=== PATIENT | female | born 1985 | race Asian ===

== ENCOUNTER 2016-04-07 15:25 | Outpatient (CLI) | payer SELFPAY ==
[~2016-04-07] VITALS: Ht 162.6 cm; Wt 52.0 kg
[2016-04-07 15:54] LABS: URINE APPEARANCE CLEAR (CLEAR); URINE BILIRUBIN NEG (NEG); URINE COLOR YELLOW; URINE NITRITE NEG (NEG); URINE SPECIFIC GRAVITY 1.005 (1.000-1.030); UROBILINOGEN NEG (NEG); ZZUR CULT IF INDIC CLEAN CATCH NO
[2016-04-07 16:01] LABS: HEMATOCRIT 36.9 % (37-47); MEAN CELL VOLUME 77.5 fL (80-100); MEAN CORPUSCULAR HEMOGLOBIN 26.1 pg (25-34); MEAN CORPUSCULAR HGB CONC 33.6 g/dl (32-36); MEAN PLATELET VOLUME 9.9 fL (7.4-10.4); PLATELET COUNT 222 K/uL (130-400); RED BLOOD COUNT 4.76 M/uL (4.2-5.4); WHITE BLOOD COUNT 8.19 K/uL (4.8-10.8)
[2016-04-07 16:02] LABS: MANUAL MICROSCOPIC REQUIRED? NO; REVIEW REQ? NO
--- NOTE | 2016-04-07 16:02 | Medical Student: [facility] ---
Med Student History & Physical Date of Service Apr 07, 2016. Chief Complaint Bleeding History of Present Illness Source: patient, partner, other (carbon accountant ) Patient is a 31 year old, , 20 - 22 weeks GA, IRA 08/27/16 who presented today with vaginal bleeding. Patient and are from [place] and do not speak Chinese. All information was obtained via an carbon accountant. Patient does have medical records, but they are in [place]. Bleeding started at 0900 this morning. There have been about 3-4 instances of red tinged toilet paper today. Her course is also significant for some brown vaginal discharge at 13 weeks GA. She is also experiencing some pressure/ pain in her lower abdomen. She can still feel movement and has had no other fluid leaks. There is no recent trauma including a blow or a fall. The patient has not had intercourse in the last 72 hours. Patient's PMH is significant for anemia that was treated with supplements. The patient does not know her blood type. OB History No obstetrical history [employer] MARKETING History No history of abnormal pap smears, vaginal or cervical infections, or sexually transmitted diseases Past Medical History Past medical history is significant for anemia Social History Housing status: lives with significant other Occupational Status: unemployed Review of Systems Constitutional: No chills, No fever Respiratory: No cough, No shortness of breath Cardiovascular: No chest pain, No palpitations Abdomen: + pain, No nausea, No vomiting Denies RAPP and dizziness Physical Exam Vital Signs: BP: 106/70, HR: 84, Temp: 36, RR 15, Pulse Ox 100% General Appearance: WD/WN, no apparent distress Respiratory/Chest: lungs clear, normal breath sounds Cardiovascular: regular rate, rhythm, no edema, no gallop, no murmur Abdomen / GI: normal bowel sounds, non tender, soft, + pertinent finding ( gravid ) Extremities: no pedal edema Skin: normal color, warm/dry Monitoring External Monitor: Heart Tracing: HR 146 Assessment and Plan Patient is a 31 year old, , 20-22 weeks GA, 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 -obtain US to determine gestational age and placental location -get CBC to determine H & H
--- NOTE | 2016-04-07 16:30 | DIAGNOSTIC IMAGING REPORT ---
LIMITED (US) CLINICAL HISTORY: Vaginal bleeding. . COMPARISON STUDY: No previous studies for comparison. TECHNIQUE: Transabdominal sonography of the pelvis was performed. FINDINGS: A single intrauterine gestation is noted. heart rate is normal at 140 bpm. The cervix was closed, measuring 3.6 cm in length. Presentation on this exam was variable but predominantly cephalic. The placenta was located within the fundus as well as anteriorly and posteriorly. There is no evidence for placenta previa. No evidence for placental abruption was noted. Please note that a dedicated anatomical survey was not performed. The head circumference measures 17.27 cm which corresponds to an estimated gestational age of 19 weeks and 6 days. Abdominal circumference measured 15.74 cm which corresponds to an estimated gestational age of 20 weeks and 6 days. The biparietal diameter measured 4.58 cm which corresponds to an estimated gestational age of 19 weeks and 6 days. Femur length measured 3.15 cm which corresponds to an estimated gestational age of 19 weeks and 6 days. Estimated gestational age on this exam is 19 weeks and 6 days. IMPRESSION: 1. Single viable intrauterine gestation with normal heart rate of 140 bpm. 2. Estimated gestational age of 19 weeks and 6 days on this exam. 3. No placental abnormality. 4. Closed cervix, measuring 3.6 cm. Electronically signed by: Carlos Montejo M.D. 04/07/2016 4:28 PM Dictated Date/Time: 04/07/2016 4:25 PM
[2016-04-07 17:37] VITALS: Ht 162.6 cm; Wt 52.0 kg
== END 2016-04-07 18:40 | disposition home or self-care (01) ==
LOC: C.OPB 15:25 → C.LD 15:25 → C.OPB 18:40
PROVIDERS: ATTEND Obstetrics & Gynecology
DX: O46.92 Antepartum hemorrhage, unspecified, second trimester (principal); Z3A.19 19 weeks gestation of pregnancy

== ENCOUNTER → 2016-06-01 | Outpatient (CLI) | payer BC ==
[~2016-06-01] MED LIST: PRENTAB26 PO; VIREAD
== END | disposition home or self-care (01) ==
LOC: C.PAPS 10:50
PROVIDERS: ATTEND Obstetrics & Gynecology
DX: Z01.419 Encounter for gynecological examination (general) (routine) without abnormal findings (principal); Z34.02 Encounter for supervision of normal first pregnancy, second trimester

== ENCOUNTER → 2016-06-01 | Outpatient (CLI) | payer BC ==
[2016-06-01 12:30] LABS: URINE APPEARANCE CLEAR (CLEAR); URINE BILIRUBIN NEG (NEG); URINE COLOR YELLOW; URINE NITRITE NEG (NEG); URINE SPECIFIC GRAVITY 1.022 (1.000-1.030); UROBILINOGEN NEG (NEG)
[2016-06-01 12:34] LABS: ALKALINE PHOSPHATASE 88 U/L (45-117); ALT/SGPT 24 U/L (12-78); AST/SGOT 18 U/L (15-37)
[2016-06-01 12:36] LABS: MANUAL MICROSCOPIC REQUIRED? NO; REVIEW REQ? NO
[2016-06-01 14:11] LABS: GTGD 50 Grams
[2016-06-03 01:44] LABS: CHLAMYDIA TRACH RNA*** NOT DETECTED (NOT DETECTED); GC (NEIS GONORRHOEAE)RNA** NOT DETECTED (NOT DETECTED)
[2016-06-03 15:27] LABS: HEP B QUANT LOG IU/ML 8.08 Log IU/mL (<1.30); HEPATITIS BE ANTIGEN TC 555 Reactive; HEPATITIS C VIRAL RNA BY PCR <15 NOT DETECTED IU/ML (<15); HEPATITIS C VIRAL RNA(LOG) PCR <1.18 NOT DETECTED LOG IU/ML (<1.18)
== END | disposition home or self-care (01) ==
LOC: C.LAB1850 09:52
PROVIDERS: ATTEND Obstetrics & Gynecology
DX: Z34.02 Encounter for supervision of normal first pregnancy, second trimester (principal)

== ENCOUNTER → 2016-06-23 | Outpatient (CLI) | payer BC ==
[2016-06-23 10:46] LABS: ALT/SGPT 27 U/L (12-78); AST/SGOT 19 U/L (15-37); BLOOD UREA NITROGEN 6 mg/dl (7-18); BUN/CREATININE RATIO 11.9 (10-20); CALCIUM 8.5 mg/dl (8.5-10.1); CARBON DIOXIDE 27 mmol/L (21-32); CHLORIDE 105 mmol/L (98-107); CREATININE 0.48 mg/dl (0.60-1.20); GLUCOSE 77 mg/dl (70-99); POTASSIUM 3.5 mmol/L (3.5-5.1); SODIUM 139 mmol/L (136-145)
[2016-06-23 10:49] LABS: ALB/GLOB RATIO 0.7 (0.9-2); ALKALINE PHOSPHATASE 122 U/L (45-117)
[2016-06-26 16:37] LABS: HEP B QUANT >170.0E6 IU/mL (<20); HEP B QUANT LOG IU/ML >8.23 Log IU/mL (<1.30)
== END | disposition home or self-care (01) ==
LOC: C.LAB1850 09:28
PROVIDERS: ATTEND Internal Medicine Infectious Disease
DX: B18.1 Chronic viral hepatitis B without delta-agent (principal)

== ENCOUNTER → 2016-07-27 | Outpatient (CLI) | payer BC ==
[2016-07-27 13:22] LABS: CALCIUM 8.3 mg/dl (8.5-10.1)
[2016-07-27 13:30] LABS: ALT/SGPT 28 U/L (12-78); BLOOD UREA NITROGEN 6 mg/dl (7-18); BUN/CREATININE RATIO 11.7 (10-20); CARBON DIOXIDE 26 mmol/L (21-32); CHLORIDE 105 mmol/L (98-107); CREATININE 0.52 mg/dl (0.60-1.20); GLUCOSE 75 mg/dl (70-99); POTASSIUM 3.7 mmol/L (3.5-5.1); SODIUM 139 mmol/L (136-145)
[2016-07-27 13:33] LABS: ALB/GLOB RATIO 0.6 (0.9-2); ALKALINE PHOSPHATASE 182 U/L (45-117); AST/SGOT 25 U/L (15-37)
[2016-07-29 10:35] LABS: HEP B QUANT LOG IU/ML 4.2 Log IU/mL (<1.30)
== END | disposition home or self-care (01) ==
LOC: C.LAB1850 10:06
PROVIDERS: ATTEND Internal Medicine Infectious Disease
DX: B18.1 Chronic viral hepatitis B without delta-agent (principal)

== ENCOUNTER → 2016-08-04 | Outpatient (CLI) | payer BC | END | disposition home or self-care (01) | LOC: C.LABSPEC 10:58 | PROVIDERS: ATTEND Obstetrics & Gynecology | DX: Z34.02 Encounter for supervision of normal first pregnancy, second trimester (principal) ==

== ENCOUNTER → 2016-08-10 | Outpatient (CLI) | payer BC ==
[2016-08-10 12:54] LABS: ALT/SGPT 28 U/L (12-78); AST/SGOT 25 U/L (15-37); BLOOD UREA NITROGEN 9 mg/dl (7-18); BUN/CREATININE RATIO 15.5 (10-20); CALCIUM 8.3 mg/dl (8.5-10.1); CARBON DIOXIDE 26 mmol/L (21-32); CHLORIDE 107 mmol/L (98-107); CREATININE 0.61 mg/dl (0.60-1.20); GLUCOSE 88 mg/dl (70-99); POTASSIUM 3.6 mmol/L (3.5-5.1); SODIUM 141 mmol/L (136-145)
[2016-08-10 12:55] LABS: ALB/GLOB RATIO 0.7 (0.9-2); ALKALINE PHOSPHATASE 206 U/L (45-117)
[2016-08-14 16:25] LABS: HEP B QUANT LOG IU/ML 4.08 Log IU/mL (<1.30)
== END | disposition home or self-care (01) ==
LOC: C.LAB1850 10:56
PROVIDERS: ATTEND Internal Medicine Infectious Disease
DX: B18.1 Chronic viral hepatitis B without delta-agent (principal)

== ENCOUNTER 2016-08-25 06:41 | Inpatient (IN) | payer BC ==
[~2016-08-25] VITALS: Ht 162.6 cm; Wt 61.2 kg
[2016-08-25] MEDS ORDERED: LACTATED RINGER'S 1000ML 1,000 ML IV PRN (08:17)
[2016-08-25 08:42] LABS: MEAN CELL VOLUME 80.3 fL (80-100); MEAN CORPUSCULAR HEMOGLOBIN 25.9 pg (25-34); MEAN CORPUSCULAR HGB CONC 32.3 g/dl (32-36); MEAN PLATELET VOLUME 9.9 fL (7.4-10.4); PLATELET COUNT 212 K/uL (130-400); RED BLOOD COUNT 4.98 M/uL (4.2-5.4); WHITE BLOOD COUNT 9.15 K/uL (4.8-10.8)
[2016-08-25] MEDS ORDERED: BUTORPHANOL TARTRATE 1 MG/ML VIAL IV PRN (10:30)
[2016-08-25] MEDS ORDERED: BUTORPHANOL TARTRATE 1 MG/ML VIAL ONE (10:30)
[2016-08-25] MEDS ORDERED: VIREAD (10:38)
[2016-08-25] MEDS ORDERED: PRENTAB26 PO (10:38)
[2016-08-25] MEDS: LACTATED RINGER'S 1000ML 1,000 ML IV SCH ×2 (11:44→12:34)
[2016-08-25] MEDS ORDERED: BUPIVACAINE 0.25% 30 ML VIAL ONE (12:20)
[2016-08-25] MEDS ORDERED: FENTANYL 2MCG/ML ROPIV 1.25MG/ML 100ML BAG EPI ONE (12:21)
[2016-08-25] MEDS ORDERED: EpHEDrine SULFATE INJ 50 MG/ML AMP ONE (12:21)
[2016-08-25] MEDS ORDERED: FENTANYL CITRATE INJ 50 MCG/1 ML 2 ML VIAL ONE (12:22)
[2016-08-25] MEDS ORDERED: LACTATED RINGER'S 1000ML 500 ML IV PRN ×2 (12:29→13:04)
[2016-08-25] MEDS ORDERED: OXYTOCIN 30 UNITS/500ML NSS IV PRN ×2 (12:30→18:30)
[2016-08-25] MEDS ORDERED: NALOXONE HCL INJ 1 MG in SODIUM CHLORIDE 0.9% 1000ML 1,000 ML IV PRN (13:04)
[2016-08-25] MEDS ORDERED: EpHEDrine SULFATE INJ 50 MG/ML AMP IV PRN (13:15)
[2016-08-25] MEDS ORDERED: ONDANSETRON INJ 2 MG/ML 2 ML VIAL IV PRN (13:15)
[2016-08-25] MEDS ORDERED: DiphenhydrAMINE HCL 50 MG/ML VIAL IV PRN (13:15)
[2016-08-25] MEDS ORDERED: NALOXONE HCL INJ 0.4 MG/1 ML VIAL/CARP IV PRN (13:15)
[2016-08-25] MEDS ORDERED: NALBUPHINE HCL INJ 10 MG/ML AMP IV PRN (13:15)
[2016-08-25] MEDS ORDERED: FENTANYL 2MCG/ML ROPIV 1.25MG/ML 100ML BAG EPI PRN (13:15)
[2016-08-25] MEDS ORDERED: HYDROCORTISONE ACETATE 25 MG SUPP PR PRN (18:30)
[2016-08-25] MEDS ORDERED: DIPHTHERIA/TETANUS/PERTUSSIS 0.5 ML SYR/VIAL IM. ONE (18:30)
[2016-08-25] MEDS ORDERED: IBUPROFEN 600 MG TAB PO PRN (18:30)
[2016-08-25] MEDS ORDERED: ACETAMINOPHEN/CODEINE 300/30MG TAB PO PRN ×2 (18:30)
[2016-08-25] MEDS ORDERED: LANOLIN OINT EXT PRN ×2 (18:30)
[2016-08-25] MEDS ORDERED: SUPERCREAM 0.870 % 15GM JAR EXT PRN (18:30)
[2016-08-25] MEDS ORDERED: BENZOCAINE 20% AER SPR 82.5 GM CAN EXT PRN (18:30)
[2016-08-25] MEDS ORDERED: ACETAMINOPHEN 325 MG TAB PO PRN (18:30)
--- NOTE | 2016-08-25 18:31 | Vaginal Delivery Summary ---
Vaginal Delivery Summary The patient is a 31-year-old 1 para 0 with an EDC of 27 August at 39+ weeks gestational age who presented late labor and delivery with spontaneous rupture of membranes. Patient states membranes ruptured at approximately 0600 hrs. with subsequent onset of contractions. The patient arrived from [facility] approximately 28 weeks gestational age. It is unclear how much medical care she had received. Ultrasound was consistent with the EDC the patient states that they were working with. Medical records from [facility] seem to indicate that the patient had hepatitis B and as such viral screening was performed. The patient's hepatitis viral count was markedly elevated. She was seen by infectious disease and started on viread 300 mg daily. Her most recent viral count was still elevated but had decreased. The patient's blood type is B+, antibody negative, rubella immune, normal 1 hour Glucola 28 weeks and a negative surgery Mr. menstrual culture. Upon admission the patient was a 4 cm dilated. Her tracing was category 1. The delivering physician assumed care for the patient at this point. The patient ambulated and progressed to 6 cm but then had arrest of cervical dilatation for over 4 hours at 6 cm. The patient was exhausted and requested an epidural which was placed. Pitocin was initiated for secondary arrest of dilatation. The patient progressed to full dilatation. The patient had no urge to push and was allowed to labor down for 1 hour before beginning her second stage. Her epidural rate was decreased to 6 cc/h. The patient pushed for over 2 hours bringing the vertex down to a +3 station. Tracing was category 2 during the second stage. At this point the patient was exhausted, and verbal consent was obtained for a vacuum delivery. The baby was delivered over a midline episiotomy with 2 pulls of the vacuum. Nuchal cord 1 reduced on the perineum. Cord gases and cord blood samples were obtained. The placenta was delivered spontaneously and sent for pathological evaluation. Inspection of the perineum showed a midline episiotomy with a third-degree extension. There was also a left sulcus tear. The sphincter muscle was isolated and reapproximated with 3 [id number] 2-0 Vicryl sutures. The laceration and episiotomy was repaired with 40 and 2-0 Vicryl. Estimated blood loss was 300 cc. Sponge and needle count was correct.
--- NOTE | 2016-08-25 19:01 | Anesthesia Procedure Note ---
Anesthesia Epidural Removal Nt Date & Time Aug 25, 2016 at 19:01 Vital Signs Pain Intensity: 0.0 Notes Mental Status: alert / awake / arousable, participated in evaluation Nausea / Vomiting: adequately controlled Pain: adequately controlled Airway Patency, RR, SpO2: stable & adequate BP & HR: stable & adequate Hydration State: stable & adequate Neuraxial Anesthesia: was administered Anesthetic Complications: no major complications apparent, pt satisfied with anesthetic care Epidural: removed without complications, with tip intact
--- NOTE | 2016-08-25 20:35 | Medical Student: [facility] ---
Medical Student Delivery Note Elyse is a 31 year old female with an EDC of 08/27/16 by LMP of 11/21/15 who presented at 39+5 wks GA due to SROM. Rupture occurred at 0600 with contractions following. Elyse and her emigrated from [place] at 28 weeks GA. HBsAg screen revealed elevated HBV viral load; records from [facility] indicate that they were not aware of her positive HBV status. She was subsequently started on tenofovir 300 mg at 31 wks GA. Her most recent HBV count from 08/10/16 has since decreased considerably but is still detectable. Other pertinent labs: blood type B+, negative Ab screen, GBS negative, and rubella immune. She received adequate analgesia with an epidural placed after dilation at 6cm. She was started on IV pitocin. Patient progressed to become fully dilated at approximately 1430 but felt no urge to push and therefore labored down for an hour. At 1528, she began pushing. After two hours , she progressed to 3+ station. Due to maternal exhaustion, a vacuum delivery was pursued after obtaining consent from the patient. Two vacuum suctions were applied to the vertex of the . A midline episiotomy was performed and the baby was delivered. Nuchal cord x1 was reduced. The placenta was delivered with gentle downward traction on the cord. Cord gasses and blood were collected. A third degree laceration and left sulcus tear were observed and repaired along with the midline episiotomy. Apgars 8/9. Estimated blood loss was 300cc. Mother and baby are doing well and are bonding appropriately.
[2016-08-25 23:20] VITALS: BP 102/68; PULSE 93; TEMP 36.9; O2SAT 98
[2016-08-26 03:45] VITALS: BP 100/68; PULSE 93; TEMP 37; O2SAT 98
--- NOTE | 2016-08-26 06:44 | OB/GYN Progress Note ---
TELEVISION RECEIVER ANALYZER Progress Note Date of Service Aug 26, 2016. Subjective conversation w/ patient (via table games shift manager), conversation w/ family, physical exam , chart review, lab review Ambulation: ambulating normally Voiding: no voiding problems Passing Gas: Yes (no BM yet) Diet Tolerance: Regular Diet Lochia: Small (pt says is improving) Feeding Type: Bottle Feeding Pain: Says is at a "normal" level for her, 4/10, low abdomen Review of Systems Constitutional: No fever, No chills Respiratory: No cough, No shortness of breath Cardiac: No chest pain Abdomen: No nausea, No vomiting, No diarrhea Female : No dysuria Objective Vital Signs Date Time Temp Pulse Resp B/P (MAP) Pulse Ox O2 Delivery O2 Flow Rate FiO2 08/26/16 03:45 37.0 93 16 100/68 (79) 98 Room Air 08/25/16 23:20 98 Room Air 08/25/16 23:20 36.9 93 18 102/68 (79) 98 Room Air Physical Exam General Appearance: WELL-APPEARING, WD/WN, NO APPARENT DISTRESS Respiratory/Chest: lungs clear, normal breath sounds Cardiovascular: regular rate, rhythm, no murmur Abdomen: normal bowel sounds, non tender, soft Fundus: Firm, Tender (minimally ttp over fundus), Relation to Umbilicus (at umbilicus) Extremities: normal range of motion, non-tender, no pedal edema, no calf tenderness Laboratory Results Last 24 Hours Test 08/25/16 08:34 08/26/16 04:44 White Blood Count 9.15 K/uL Red Blood Count 4.98 M/uL Hemoglobin 12.9 g/dL Hematocrit 40.0 % Mean Corpuscular Volume 80.3 fL Mean Corpuscular Hemoglobin 25.9 pg Mean Corpuscular Hemoglobin Concent 32.3 g/dl RDW Standard Deviation 38.4 fL RDW Coefficient of Variation 13.4 % Platelet Count 212 K/uL Mean Platelet Volume 9.9 fL Assessment and Plan Post- Day Number: 1 Continue Routine Care: 31yo s/p vaginal delivery, now PPD #1. Interview was assisted by skype table games shift manager. - Blood type B pos. GBS negative. Rubella immune. - Positive recent hx of active hepatitis B. - Vital signs reviewed and stable. - Pain controlled with minimal meds thus far. - No leg swelling or tenderness on calf palpation. Encourage ambulation. - Pt says she wishes to bottle feed. - Hemoglobin: 12.9 --> this am pending. Continue to monitor clinically. - Continue routine post-vaginal delivery care. - Pt agreed with above plan, all current questions answered. Howard Claire MD, PGY1 Maintenance Repairer Physician Supervision Note: I interviewed and examined the patient. Discussed with Dr. Claire and agree with findings and plan as documented in the note. Any exceptions or clarifications are listed here: Patient is bottle feeding, will have patient bind breasts. Documented By: Serafin Castellanos Resident Involvement: Resident Care Provided Care Provided: OB Delivery (morning rounds)
--- NOTE | 2016-08-26 07:14 | Medical Student: [facility] ---
Med Student HUMAN RESOURCES TECHNICIAN Progress Nt Date of Service Aug 26, 2016. Subjective conversation w/ patient (via iPad ammonia technician services) Ambulation: ambulating normally Voiding: voiding difficulty Passing Gas: Yes Diet Tolerance: Regular Diet Lochia: Small Feeding Type: Bottle Feeding Pain: 4/10 Notes: Elyse is a 31 year old female who is day 1. She and her were asleep when I entered the room. We communicated via ammonia technician video chat on the iPad. Patient is doing well. She reports a 4/10 pain level. She says her bleeding has slowed down since yesterday. Elyse is also bottle feeding. When asked about her mood she said she was happy. Review of Systems Constitutional: No fever, No chills Respiratory: No shortness of breath Cardiac: No chest pain Breast: No problem reported Abdomen: No pain, No nausea, No vomiting, No diarrhea, No constipation Female : + dysuria (pain with urination) Objective Vital Signs Date Time Temp Pulse Resp B/P (MAP) Pulse Ox O2 Delivery O2 Flow Rate FiO2 08/26/16 03:45 37.0 93 16 100/68 (79) 98 Room Air 08/25/16 23:20 98 Room Air 08/25/16 23:20 36.9 93 18 102/68 (79) 98 Room Air Physical Exam General Appearance: WELL-APPEARING, WD/WN, NO APPARENT DISTRESS Respiratory/Chest: chest non-tender, lungs clear, normal breath sounds, no respiratory distress Cardiovascular: regular rate, rhythm, no gallop, no murmur Abdomen: non tender, soft Fundus: Firm, Relation to Umbilicus (2 cm above) Extremities: normal inspection, no pedal edema, no calf tenderness Laboratory Results Last 24 Hours Test 08/25/16 08:34 08/26/16 04:44 White Blood Count 9.15 K/uL Red Blood Count 4.98 M/uL Hemoglobin 12.9 g/dL Hematocrit 40.0 % Mean Corpuscular Volume 80.3 fL Mean Corpuscular Hemoglobin 25.9 pg Mean Corpuscular Hemoglobin Concent 32.3 g/dl RDW Standard Deviation 38.4 fL RDW Coefficient of Variation 13.4 % Platelet Count 212 K/uL Mean Platelet Volume 9.9 fL Assessment and Plan Post- Day Number: 1 Continue Routine Care: Elyse is a 31 year old female on day 1 who presented yesterday due to SROM. She and her recently moved to the [place] at 28 weeks GA. Elyse discovered she was hepatitis B positive after initiating care with [facility]. labs - B+, rubella immune, GBS negative, Ab screen negative Hct/Hb - 40/12.9 --> pending, labs drawn this morning Vital signs reviewed and are stable. Continue routine post-vaginal delivery care. Coin Purse Framer on perineal care with sitz baths, NSAIDs, and icing. Encourage ambulation. Pain control as needed. However, she is comfortable now with minimal pain meds. Since she is bottle feeding, delinquency counselor on prevention of with breast binding by wearing a sports bra or other methods of compression.
[2016-08-26] MEDS: DOCUSATE SODIUM 100 MG CAP PO SCH ×2 (07:35→19:49)
[2016-08-26] MEDS: PRENATAL VITAMIN TAB PO SCH (07:41)
[2016-08-26] MEDS: FERROUS SULFATE 325 MG TAB PO SCH (07:41)
[2016-08-26 07:50] VITALS: BP 101/66; PULSE 95; TEMP 36.6; O2SAT 97
[2016-08-26 08:14] LABS: HEMATOCRIT 31.6 % (37-47)
[2016-08-26] MEDS: VIREAD 300 MG PO SCH (10:57)
[2016-08-26 11:00] VITALS: BP 99/65; PULSE 96; TEMP 36.4; O2SAT 97
[2016-08-26 15:40] VITALS: BP 94/61; PULSE 88; TEMP 36.9; O2SAT 97
[2016-08-26] MEDS ORDERED: BISACODYL 5 MG TABEC PO SCH (20:00)
[2016-08-26 23:50] VITALS: BP 99/65; PULSE 84; TEMP 36.5; O2SAT 97
--- NOTE | 2016-08-27 06:42 | OB/GYN Progress Note ---
SENIOR DIRECTOR OF STRATEGY Progress Note Date of Service Aug 27, 2016. Subjective conversation w/ patient, conversation w/ family (), physical exam, chart review, lab review, review of studies Ambulation: ambulating normally Voiding: no voiding problems Passing Gas: Yes (No BM yet) Diet Tolerance: Regular Diet Lochia: Small Feeding Type: Bottle Feeding ((and breast binder)) Pain: Minimal low abdominal discomfort Review of Systems Constitutional: No fever Respiratory: No cough, No shortness of breath Cardiac: No chest pain Abdomen: + pain, No nausea, No vomiting, No diarrhea Female : No dysuria Objective Vital Signs Date Time Temp Pulse Resp B/P (MAP) Pulse Ox O2 Delivery O2 Flow Rate FiO2 08/26/16 23:50 97 Room Air 08/26/16 23:50 36.5 84 18 99/65 (76) 97 Room Air 08/26/16 15:40 97 Room Air 08/26/16 15:40 36.9 88 16 94/61 (72) 97 Room Air 08/26/16 11:00 36.4 96 18 99/65 (76) 97 Room Air 08/26/16 07:50 97 Room Air 08/26/16 07:50 36.6 95 18 101/66 (78) 97 Room Air Physical Exam General Appearance: WELL-APPEARING, WD/WN, NO APPARENT DISTRESS Respiratory/Chest: lungs clear, normal breath sounds Cardiovascular: regular rate, rhythm, no murmur Abdomen: normal bowel sounds, non tender, soft Fundus: Non-Tender (no notable ttp over fundus) Extremities: normal range of motion, non-tender, no pedal edema, no calf tenderness Laboratory Results Last 24 Hours Test 08/26/16 07:54 Hemoglobin 10.2 g/dL Hematocrit 31.6 % Assessment and Plan Post- Day Number: 2 Continue Routine Care: 31yo s/p vaginal delivery, now PPD #2. Interview was assisted by skype peeled potato inspector via ipad. - Blood type B pos. GBS negative. Rubella immune. - Positive recent hx of active hepatitis B. - Vital signs reviewed and stable. - Pain controlled with minimal PO med here. - No leg swelling or tenderness on calf palpation. Encourage ambulation. - Pt states she wishes to bottle feed, so breast binding started here (and encouraged at d/c). - Hemoglobin: 12.9 --> 10.2 Bleeding has improved. Continue to monitor clinically. - Continue routine post-vaginal delivery care. - Plan d/c home today. Discussed that d/c paperwork would be in [place] ( has some fluency) but to call clinic if any questions or concerns at all. Pt asked about OTC pain meds, so rec'd OTC ibuprofen prn. - Pt agreed with above plan, all current questions answered. Howard Claire MD, PGY1 Band Sawing Machine Operator Physician Supervision Note: I was present with Dr. Claire during the history and exam. I discussed the case with the resident and agree with the findings and plan as documented in the note. Any exceptions or clarifications are listed here: Pt fundus is firm and about 1 cm below. Ready for d/c. Instructions reviewed with her spouse on pt behalf. f/u 6wks pp check. Documented By: Allison Lees Resident Tracking Resident Involvement: Resident Care Provided Care Provided: OB Delivery (morning rounds)
--- NOTE | 2016-08-27 06:44 | Discharge Instructions ---
Discharge Instructions Date of Service Aug 27, 2016. Admission Reason for Admission: Check Bleeding Discharge Discharge Diagnosis / Problem: Recovery from vaginal delivery Discharge Goals Goal(s): Routine recovery after delivery Medications Continue Dispensed Medications: supercream, dermaplast, tucks, lansinoh Activity Recommendations Activity Limitations: per Instructions/Follow-up section . Instructions / Follow-Up Instructions / Follow-Up ACTIVITY RECOMMENDATIONS: * Gradual return to full activity over the next 2-3 weeks. * No lifting - nothing heavier than baby over the next 2-3 weeks. * Do not engage in vigorous exercise, sexual activity or sports until cleared by your physician. * Do not drive or operate any motorized equipment until cleared by your physician. * You may shower/bathe daily. MEDICATIONS: For discomfort or pain, you may use Acetaminophen (Tylenol), Ibuprofen (Advil), or Naproxen (Aleve) following the package directions. For constipation you may use Colace following the package directions. BREAST CARE: If you are not breast feeding: * Wear a supportive bra 24 hours a day for one to two weeks. * Avoid stimulating your breasts and nipples as much as possible during the first few weeks after delivery. * When taking a shower, have the warm water hit your back, not breasts. * When your breasts feel full, apply ice packs. Usually three to four times a day helps ease the discomfort. * Take a mild pain medication (Tylenol / Motrin) when you are uncomfortable. If breast feeding: * Use breast milk to lubricate nipples. Lansinoh cream may be used for sore nipples. You do not need to remove cream prior to breast feeding. If using a different brand of cream, check the label for directions regarding removal of cream prior to nursing. * Wear a supportive bra. * If having problems with breasts or breast feeding, call a dairy consultant or your health care provider. EPISIOTOMY CARE: After delivery, if you have an episiotomy (stitches), the following steps will ease discomfort and aid healing. * For the first 24 hours after delivery, place ice packs next to your episiotomy to help reduce swelling. * After the first 24 hour-period, sitz baths, either portable or in the tub, are suggested. A shower with a shower arm sprayed over the episiotomy may be comforting. * Katy care should be done after each voiding and bowel movement. Squirt warm water from a plastic bottle over the perineum (region of the body between the anus and urinary opening) and pat dry. * Use Dermoplast to ease discomfort. Shake container. Brickeys directly over the episiotomy. Place a Tucks on a clean sanitary pad next to your episiotomy. SPECIAL CARE INSTRUCTIONS: When you are discharged from the hospital, it is important for you to follow the instructions listed below: * During the first week at home, you should be able to care for yourself and your baby. In addition, the usual light household activities are encouraged. * Limit your activities to the way you feel. Do not try to clean the house or move furniture. Be sensible. * If you actively engage in sports and have done so up until the time of your delivery, you may resume these activities as soon as you feel able. This may take up to one month or even longer. Use good judgment. * Continue to take your vitamins for at least six weeks after the of your baby. * Your diet need not be limited unless you were on a special diet before your delivery. Breast-feeding mothers need around 2500 calories per day and at least 64-80 ounces of fluid per day (8 to 10 glasses). * You should eat foods from the four major food groups. Crash diets or fad diets are to be avoided. Eating lean meats, fresh fruits and vegetables, low-fat dairy products, high fiber foods and a regular exercise program, will help you get back to your pre- weight without putting your health at risk. * Constipation is sometimes a problem after delivery. Take a mild laxative as needed. If breast feeding, Milk of Magnesia is acceptable to use. You may use a suppository or Fleets enema if no episiotomy. * A daily shower or tub bath is suggested. Be sure to thoroughly and gently dry the perineum. * A bloody vaginal discharge will usually continue until around four weeks post . A small amount of bleeding may continue for as long as six weeks. Vaginal discharge changes from the bright red bleeding after delivery to pink then brownish and finally yellowish-pink before becoming white and disappearing. * Bleeding may increase with activity. Your first period may come in 4-8 weeks. If you are breast feeding, your period may be delayed even longer. * [place] (sex) can begin whenever both you and your partner feel comfortable and do not have any form of genital infection. It is recommended that you wait at least six weeks for internal and external healing to occur. If you have questions, please talk to your health care practitioner. A condom should be used to prevent infection and . * Foreplay, gentle intercourse and lubrication is very important the first several times to prevent pain. A water-based lubricant such as K-Y jelly or Astroglide may be used. * If you have RH negative blood and your baby is RH positive, you will receive RHOGAM by injection prior to discharge. The nurse will give you a card to keep with you that has the date and place that you received RHOGAM after delivery. * During your care, you had a Rubella screen done to check for the presence of rubella antibodies in your blood. If your test was negative, you will receive a Rubella vaccine prior to discharge. This vaccine may cause a fever, soreness at the injection site and flu-like symptoms. If these symptoms persist, notify your health care practitioner. is not advised for one month after a Rubella vaccine. * Verbalizes understanding of car seat law as reviewed with patient nursing. * Car Seat hand-out given and reviewed with patient by nursing. * Shaken baby information reviewed with patient by nursing. Call you doctor if: * Heavy bleeding (saturating several pads an hour) or passing clots the size of your fist. * A fever >101 degrees F (38.3 degrees C) on two occasions four hours apart and /or chills. * Unusual pain in the pelvic or vaginal areas. * "Baby Blues" lasting longer than two weeks. If you have any questions or concerns, call your health care practitioner at . FOLLOW UP VISIT: * Please call the office at to schedule a 6 week examination. It is important you keep this appointment. It is important for you to make arrangements for either yearly or twice yearly check-ups thereafter. Current Hospital Diet Patient's current hospital diet: Regular OB Diet Discharge Diet Recommended Diet: Regular OB Diet Pending Studies Studies pending at discharge: no Medical Emergencies . Who to Call and When: Medical Emergencies: If at any time you feel your situation is an emergency, please call [phone] immediately. . Non-Emergent Contact Non-Emergency issues call your: Nematologist . . "Provider Documentation" section prepared by Howard Claire. . VTE Core Measure Inpt VTE Proph given/why not?: Treatment not indicated
[2016-08-27 08:00] VITALS: BP 94/60; PULSE 79; TEMP 37
--- NOTE | 2016-08-27 08:01 | Discharge Summary ---
Discharge Summary Date of Service Aug 27, 2016. Discharge Summary Admission Date: Aug 25, 2016 at 08:18 Discharge Date: Aug 27, 2016 Discharge Disposition: Home Principal Diagnosis: 1) Term 2) Active Labor Problems/Secondary Diagnoses: Chronic hepatitis-B Procedures: 1) vacuum assisted vaginal delivery 2) repair of median episiotomy and third-degree laceration Medication Reconciliation Continued Medications: Multivit/Min/Iron/Fol Ac/Pren ( Vitamin) Tab 1 TAB PO DAILY, TAB [viread ] () 300 MG DAILY Discharge Exam Please see documented progress note from this date Hospital Course The patient is a 31-year-old 1 para 0 at term who presented in early active labor with spontaneous rupture membranes. Patient established her obstetrical care to our practice at 28 weeks gestational age from [facility]. It appears the patient had minimal care prior to establishing care with our practice. The patient was diagnosed with chronic hepatitis-B and was seen by infectious disease and started on antivirals. The patient's course was essentially unremarkable. She had secondary arrest of dilatation requiring Pitocin augmentation. She began her 2nd stage and pushed for 2 and 0.5 hours but became exhausted. At that point the vertex was at a +3 station. With 2 contractions the baby was delivered over a midline episiotomy with third-degree extension. Episiotomy and laceration repaired. the patient did well and was discharged home on the 2nd day. All communication with the patient was done through an tree killer secondary to language barriers. The patient will return in 6 weeks for a check. Total Time Spent: Greater than 30 minutes This includes examination of the patient, discharge planning, medication reconciliation, and communication with other providers. Discharge Instructions Please refer to the electronic Patient Visit Report (Discharge Instructions) for additional information. Follow-Up Six weeks for check
[2016-08-27] MEDS: FERROUS SULFATE 325 MG TAB PO SCH (08:35)
[2016-08-27] MEDS: PRENATAL VITAMIN TAB PO SCH (08:35)
[2016-08-27] MEDS: DOCUSATE SODIUM 100 MG CAP PO SCH (08:35)
[2016-08-27] MEDS: VIREAD 300 MG PO SCH (08:36)
[2016-08-27 15:00] VITALS: BP_DIAS 60; PULSE 79; TEMP 37
== END 2016-08-27 16:00 | disposition home or self-care (01) | DRG 774 ==
LOC: C.OPB 06:41 → C.LD 06:43 → C.OPB 08:18 → C.OBG 21:13
PROVIDERS: ADMIT Obstetrics & Gynecology; ATTEND Obstetrics & Gynecology
PROC: 0W8NXZZ Division of Female Perineum, External Approach (ICD-10-PCS; principal; 2016-08-25)
PROC: 10D07Z6 Extraction of Products of Conception, Vacuum, Via Natural or Artificial Opening (ICD-10-PCS; principal; 2016-08-25)
PROC: 0DQR0ZZ Repair Anal Sphincter, Open Approach (ICD-10-PCS; principal; 2016-08-25)
DX: O98.42 Viral hepatitis complicating childbirth (principal); B19.10 Unspecified viral hepatitis B without hepatic coma; O70.20 Third degree perineal laceration during delivery, unspecified; O62.0 Primary inadequate contractions; O75.81 Maternal exhaustion complicating labor and delivery; O69.81X0 Labor and delivery complicated by cord around neck, without compression, not applicable or unspecified; Z37.0 Single live birth; Z3A.39 39 weeks gestation of pregnancy